=== PATIENT | female | born 1980 | race Hispanic/Latino ===

== ENCOUNTER 2018-08-12 00:41 | Observation (INO) | payer MEDICAID ==
[2018-08-12 01:10] VITALS: BMI 34.7
[2018-08-12] MEDS: Lactated Ringer's 1,000 ML IV ONE ×2 (01:15→02:15)
[2018-08-12 01:48] LABS: SQUAMOUS EPITHIAL 1 /hpf (0-5); URINE AMORPHOUS SEDIMENT RARE /ul (<OCC); URINE BILIRUBIN NEGATIVE (NEGATIVE); URINE BLOOD NEGATIVE (NEGATIVE); URINE CLARITY Hazy (Clear); URINE COLOR Yellow (YELLOW); URINE GLUCOSE (UA) NORMAL (Normal); URINE LEUKOCYTE ESTERASE NEG Leu/uL (Negative); URINE PROTEIN NEGATIVE (NEGATIVE); URINE UROBILINOGEN NORMAL mg/dL (0.2-1.0)
[2018-08-12 01:57] LABS: BASO % 0.4 % (0.0-2.0); EOS # 0.2 K/uL (0.0-0.7); EOS % 1.8 % (0.0-4.0); HEMOGLOBIN 10.6 g/dL (11.0-16.0); LYMPH # 1.9 K/uL (1.0-4.3); LYMPH % 15.5 % (20.0-40.0); MEAN CELL VOLUME 82.9 fL (81.0-99.0); MEAN CORPUSCULAR HEMOGLOBIN 27.8 pg (27.0-31.0); MEAN CORPUSCULAR HGB CONC 33.6 g/dL (33.0-37.0); MEAN PLATELET VOLUME 9.2 fL (7.2-11.7); MONO % 8.3 % (0.0-10.0); NEUT # 8.9 K/uL (1.8-7.0); NRBC % 0.1 % (0.0-2.0); RBC 3.82 Mil/uL (3.80-5.20); RED CELL DISTRIBUTION WIDTH 15.1 % (11.5-14.5)
[2018-08-12] MEDS ORDERED: Betamethasone Soluspan 30 mg/5mL Inj Susp IM ONE (02:12)
[2018-08-12 02:14] LABS: ALB/GLOB RATIO 1.1 (1.0-2.1); ALBUMIN 3.4 g/dL (3.5-5.0); ALT/SGPT 17 U/L (9-52); AST/SGOT 17 U/L (14-36); BLOOD UREA NITROGEN 7 mg/dL (7-17); CALCIUM 8.7 mg/dl (8.6-10.4); GFR NON-AFRICAN AMERICAN > 60
[2018-08-12] MEDS ORDERED: Penicillin G 5 Million Unit Vial IVPB ONE ×2 (02:43→02:57)
--- NOTE | 2018-08-12 02:51 | OBHP ---
Datetime: 08/12/2018 01:30 IP Adm Impression: , intrauterine ; No Active Labor; Intact Membranes IP Admit Plan: Initiate labor protocol Admit Comment, IP Provider: 38 yo female with an IUP at 35 weeks and presented with c/o of contractions for about 2 hours prior to presentation. Denies LOF, VB or VD and Admts to adequate FM. Further states that she recently moved from [place] and went to [facility] [place] 2 weeks ago for the first time. Next appointemnt on 08/15. Past OB Hx: 2 's at term and without complications 1SAB PMHs and PSHx Negative Meds: PNV NKDA Social Hx: denies x 3 FH: NC PE: as noted above A/P IUP at 35 weeks Labor with closed Cvx NST Reactive Labs and IV ordered and done Started on Terbutaline 0.25 SQ q 20 minutes Celestone ordered Continue Present Management GBS not done yet. Will start on PCN G Pelvic Type - PN: Adequate Extremities - PN: Normal Abdomen - PN: Normal Back - PN: Normal Breast - PN: Not Done Lungs - PN: Normal Heart - PN: Normal Thyroid - PN: Normal Neurologic - PN: Normal HEENT - PN: Normal General - PN: Normal Presentation-Admit: Vertex FHR - Baseline A Provider: 120 Membranes, Provider: Intact Contraction Comments Provider: 2-3 mins Gestation - Est Wks by US: 35.0 IP Hx Assessment: No PNC records EGA AdmitDate IP: 35.0 Vital Signs Provider: Reviewed; Within Normal Limits IP Chief Complaint: Uterine contractions NICHD Variability Prov Fetus A: Moderate 6-25bpm NICHD Accel Fetus A IP Provider: 10X10 FHR Category Provider Fetus A: Category I NICHD Decel Fetus A IP Provider: None Dilatation, Provider: 0 Effacement, Provider: 50 Station, Provider: -3 Genitourinary Exam: Normal DTRs - PN: Normal
--- NOTE | 2018-08-12 03:09 | OBADHP ---
Datetime: 08/12/2018 01:30 Admit Comment, IP Provider: 38 yo female with an IUP at 35 weeks and presented with c/o of contractions for about 2 hours prior to presentation. Denies LOF, VB or VD and Admts to adequate FM. Further states that she recently moved from [place] and went to [facility] 2 weeks ago for the first time. Next appointemnt on 08/15. Past OB Hx: 2 's at term and without complications 1SAB PMHs and PSHx Negative Meds: PNV NKDA Social Hx: denies x 3 FH: NC PE: as noted above A/P IUP at 35 weeks Labor with closed Cvx NST Reactive Labs and IV ordered and done Started on Terbutaline 0.25 SQ q 20 minutes x 3 doses Celestone ordered Continue Present Management GBS not done yet. Will start on PCN G Admit to Observation Will consider Magnesium Sulfate for tocolysis if continue with regular contraftions Pelvic Type - PN: Adequate Extremities - PN: Normal Abdomen - PN: Normal Back - PN: Normal Breast - PN: Not Done Lungs - PN: Normal Heart - PN: Normal Thyroid - PN: Normal Neurologic - PN: Normal HEENT - PN: Normal General - PN: Normal Presentation-Admit: Vertex FHR - Baseline A Provider: 120 Membranes, Provider: Intact Contraction Comments Provider: 2-3 mins Gestation - Est Wks by US: 35.0 IP Hx Assessment: No PNC records Vital Signs Provider: Reviewed; Within Normal Limits IP Chief Complaint: Uterine contractions NICHD Variability Prov Fetus A: Moderate 6-25bpm NICHD Accel Fetus A IP Provider: 10X10 FHR Category Provider Fetus A: Category I NICHD Decel Fetus A IP Provider: None Dilatation, Provider: 0 Effacement, Provider: 50 Station, Provider: -3 Genitourinary Exam: Normal DTRs - PN: Normal EGA AdmitDate IP: 35.0 IP Adm Impression: , intrauterine ; No Active Labor; Intact Membranes IP Admit Plan: Initiate labor protocol
[2018-08-12] MEDS ORDERED: Penicillin G Potassium 2.5 MU in Dextrose 5% In Water 50 ML IV SCH (07:00)
--- NOTE | 2018-08-12 09:44 | OBDCSUM ---
Datetime: 08/12/2018 09:14 Discharged to, Provider: Home Follow up at, Provider: [facility] [place] Disch Instr Activity: Normal activity Disch Instr Diet: Regular Discharge Instructions, Provider: Routine instructions given Discharge Diagnosis, Provider: Labor Discharge Time: 08/12/2018 09:14 Follow up in weeks, Provider: 08/15/2018 Disch Referrals: None Contraception discussed, Prov: Yes Disch Activity Restrictions: No lifting; Minimize stair-climbing; No sexual activity; Nothing in vag linda - Loiza, tampons, douche Discharge Comment, Provider: IUP at 35 weeks Labor with closed Cvx NST Reactive Labs and IV ordered and done Started on Terbutaline 0.25 SQ q 20 minutes x 3 doses and given Celestone ordered and given first dose GBS not done yet. Received 2 doses of PCN G Contractions ressolved and pt denies any more pain Will D/C home with instructions to pelvic rest and to f/up with her doctor's appointment on 08/15 Will return in AM for second dose of Celestone Stable and satisfactory condition Contraception after Delivery: Undecided
[2018-08-12 13:31] VITALS: BP 119/51; PULSE 104; RESP 18; TEMP 98.5
== END 2018-08-12 09:20 | disposition home or self-care (01) ==
LOC: C.EROB 00:41 → C.4D 02:53
PROVIDERS: ADMIT Obstetrics & Gynecology; ATTEND Obstetrics & Gynecology
DX: O60.03 Preterm labor without delivery, third trimester (principal); Z3A.35 35 weeks gestation of pregnancy
CPT/HCPCS: 80053; 81001; 85025; 86850; 86870; 86900; G0378; J0702; J2540; J3105; J7120

== ENCOUNTER 2018-08-13 07:21 | Emergency (ER) | payer MEDICAID ==
[2018-08-12 01:10] VITALS: BMI 34.7
[2018-08-13] MEDS ORDERED: Betamethasone Soluspan 30 mg/5mL Inj Susp IM ONE (08:00)
--- NOTE | 2018-08-13 08:43 | OBHP ---
Datetime: 08/13/2018 08:39 IP Adm Impression: , intrauterine IP Chief Complaint Other: here for betamethasone IP Admit Plan: Discharge home Admit Comment, IP Provider: at 35+weks her for betamethasone for cts, no pain or ctxs n oe, no vn,lof=-fm obhx 2 x pmh de med pnv all nkda psh de soch de ve closed a/p at 35+weks for betamethasone dc home ptl g po hy f/u in [facility] on saturday Pelvic Type - PN: Adequate Extremities - PN: Normal Abdomen - PN: Normal Back - PN: Normal Breast - PN: Normal Lungs - PN: Normal Heart - PN: Normal Thyroid - PN: Normal Neurologic - PN: Normal HEENT - PN: Normal General - PN: Normal FHR - Baseline A Provider: 130 Contraction Comments Provider: none Vital Signs Provider: Within Normal Limits NICHD Variability Prov Fetus A: Moderate 6-25bpm NICHD Accel Fetus A IP Provider: [id number] FHR Category Provider Fetus A: Category I Dilatation, Provider: 0 Effacement, Provider: 0 Station, Provider: -3 Genitourinary Exam: Normal DTRs - PN: Normal Datetime: 08/12/2018 01:30 EGA AdmitDate IP: 35.0
--- NOTE | 2018-08-13 08:45 | OBDCSUM ---
Datetime: 08/13/2018 08:37 Discharged to, Provider: Home Follow up at, Provider: [facility] Disch Instr Activity: Normal activity Disch Instr Diet: Regular Discharge Time: 08/13/2018 08:37 Follow up in weeks, Provider: 08/15/18 Disch Referrals: None Discharge Comment, Provider: oh home ptl g po hy f/u in [facility] on saturday Discharge Diagnosis Prov Other: 35wee s/p petam
[2018-08-13 12:58] VITALS: BP 110/68; PULSE 96; RESP 20; TEMP 98.4; O2SAT 99
== END 2018-08-13 08:48 | disposition home or self-care (01) ==
LOC: C.EROB 07:21
DX: Z23 Encounter for immunization (principal); Z3A.35 35 weeks gestation of pregnancy
CPT/HCPCS: 96372; 99283; J0702